=== PATIENT | male | born 1985 | race Caucasian/White ===

== ENCOUNTER 2017-04-26 05:07 | Emergency (ER) | payer SELFPAY ==
[2017-04-26 05:23] VITALS: TEMP 98.1; BMI 24.4
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
--- NOTE | 2017-04-26 08:04 | PDOC ---
*Physical Exam - Vital Signs Last Vital Signs Temp Pulse Resp BP Pulse Ox 98.1 F 77 18 141/107 99 04/26/17 05:20 04/26/17 05:20 04/26/17 05:20 04/26/17 05:20 04/26/17 05:20 - Physical Exam General Appearance: Yes: Appropriately Dressed. No: Apparent Distress HEENT: positive: Normal Voice Neck: positive: Supple Respiratory/Chest: positive: Lungs Clear, Normal Breath Sounds. negative: Respiratory Distress Cardiovascular: positive: Regular Rate, S1, S2 Integumentary: positive: Dry, Warm Neurologic: positive: Fully Oriented, Other (odd affect) ED Treatment Course - LABORATORY CBC & Chemistry Diagram: 04/26/17 07:35 04/26/17 07:35 Medical Decision Making - Medical Decision Making 04/26/17 07:59 Pt signed out to me at 7am by night PA 32 yo M, possible psych history, however patient only admits to some anxiety and alcohol abuse, resides in [facility] and present to ED with multiple complaints including drinking excessively, palpitations, decreased appetite, stress and anxiety. Pt states he recently broke up with a girlfriend and resides alone with no real support from family. Works at the [employer] and states that he thinks that people are out to get him at work. Denies auditory or hallucinations and no SI or HI. Patient states he has had issues with alcohol since he was in his late teenage years and denies prior inpt detox or rehabilitation stay and refusing same now. Pt also admits to marijuana use, last time one week ago. As per prior team, patient state he was admitted to psych facility in [facility] 5 years ago, but unclear as to why. Patient denies any history of schizophrenia or bipolar and not on any psych meds per pt. Patient stable with unremarkable exam, requesting food at this time. Labs are pending. At this time no indication for psych consult in ED. Pt has insurance but states he currently does not have a PMD or psychiatrist. Upon discharge, will encourage pt to find a PMD and psychiatrist near where he resides 04/26/17 09:03 Labs unremarkable. Pt stable enough for discharge. No SI/HI on re-eval. Pt feels safe going home *DC/Admit/Observation/Transfer Diagnosis at time of Disposition: Paranoia (psychosis), Anxiety - Discharge Dispostion Disposition: HOME Condition at time of disposition: Improved - Referrals - Patient Instructions Additional Instructions: You'll need to follow-up with a primary care physician near where you reside, who can then refer you to a psychiatrist. - Post Discharge Activity
[2017-04-26 08:08] LABS: ANION GAP 9 (8-16); BILIRUBIN,TOTAL 1.1 mg/dL (0.2-1.0); BLOOD UREA NITROGEN 7 mg/dL (7-18); CALCIUM 9.4 mg/dL (8.5-10.1); CHLORIDE 104 mmol/L (98-107); CO2 27 mmol/L (21-32); CREATININE 0.8 mg/dL (0.7-1.3); GLUCOSE,RANDOM 88 mg/dL (74-106); SGOT/AST 39 U/L (15-37); SGPT/ALT 43 U/L (12-78); SODIUM 140 mmol/L (136-145); TOT PROT 7.3 g/dl (6.4-8.2)
[2017-04-26 08:09] LABS: ALK PHOS 138 U/L (45-117)
[2017-04-26 08:14] LABS: COCAINE, UR NEGATIVE ng/ml (CUTOFF=300); METHADONE, UR NEGATIVE ng/ml (CUTOFF=300); OPIATES, URI NEGATIVE ng/ml (CUTOFF=300); PHENCYCLIDINE,URINE NEGATIVE ng/ml (CUTOFF=25); URINE AMPHETAMINES NEGATIVE ng/ml (CUTOFF=500); URINE BARBITURATES NEGATIVE ng/ml (CUTOFF=200); URINE BENZODIAZEPINES NEGATIVE ng/ml (CUTOFF=200)
[2017-04-26 08:25] LABS: BASO % 0.2 % (0-2.0); EOS % 1.3 % (0-4.5); HEMATOCRIT 45.6 % (35.4-49); HEMOGLOBIN 15.7 GM/dL (11.7-16.9); MCH 34.5 pg (25.7-33.7); MCHC 34.5 g/dl (32.0-35.9); MEAN CELL VOLUME 99.9 fl (80-96); MONO % 10.7 % (3.8-10.2); NEUT % 67.8 % (42.8-82.8); PLATELET COUNT 254 K/MM3 (134-434); RBC 4.56 M/mm3 (4.00-5.60); RDW 13.6 % (11.9-15.9); WHITE BLOOD COUNT 9.5 K/mm3 (4.0-10.0)
[2017-04-26 09:27] VITALS: BP 142/89; PULSE 87
--- NOTE | 2017-04-26 09:39 | PDOC ---
*Physical Exam - Vital Signs Last Vital Signs Temp Pulse Resp BP Pulse Ox 98.1 F 87 19 142/89 98 04/26/17 09:26 04/26/17 09:26 04/26/17 09:26 04/26/17 09:26 04/26/17 09:26 ED Treatment Course - LABORATORY CBC & Chemistry Diagram: 04/26/17 07:35 04/26/17 07:35 - ADDITIONAL ORDERS Additional order review: Laboratory Results 04/26/17 04/26/17 07:35 07:35 Sodium 140 Potassium 5.0 Chloride 104 Carbon Dioxide 27 Anion Gap 9 BUN 7 Creatinine 0.8 Creat Clearance w eGFR > 60 Random Glucose 88 Calcium 9.4 Total Bilirubin 1.1 H AST 39 H ALT 43 Alkaline Phosphatase 138 H Total Protein 7.3 Albumin 4.0 Opiates Screen Negative Methadone Screen Negative Barbiturate Screen Negative Phencyclidine Screen Negative Ur Amphetamines Screen Negative MDMA (Ecstasy) Screen Negative Benzodiazepines Screen Negative Cocaine Screen Negative U Marijuana (THC) Screen Negative Alcohol, Quantitative 9.24 H* 04/26/17 07:35 RBC 4.56 MCV 99.9 H MCHC 34.5 RDW 13.6 MPV 7.0 L Neutrophils % 67.8 Lymphocytes % 20.0 Monocytes % 10.7 H Eosinophils % 1.3 Basophils % 0.2 *DC/Admit/Observation/Transfer Diagnosis at time of Disposition: Paranoia (psychosis), Anxiety - Discharge Dispostion Disposition: HOME Condition at time of disposition: Improved - Referrals - Patient Instructions Additional Instructions: Please follow-up with a primary care physician near where you reside in one week. M.D. can also refer you to a psychiatrist and/or therapist. If you are interested in inpatient detox or rehabilitation, you can follow up at [facility] located at [address] [place] [address]. Their phone number is [phone] - Post Discharge Activity
== END 2017-04-26 09:47 | disposition home or self-care (01) ==
LOC: JER 05:07
DX: F22 Delusional disorders (principal)
CPT/HCPCS: 36415; 80053; 80307; 85025; 99282-25